=== PATIENT | male | born 1995 ===

== ENCOUNTER 2021-12-29 20:26 | Emergency (ER) | payer SELFPAY ==
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
[2021-12-29] MEDS: SODIUM CHLORIDE 0.9% IRR 500 ML BOTTLE IR ONE (22:10)
[2021-12-29] MEDS: LIDOCAINE 2%/EPINEPHRINE 1:100,000 VIAL (20 ML) INFILTRATI ONE (22:10)
[2021-12-29] MEDS: HYDROGEN PEROXIDE 118 ML SOLUTION TP ONE (22:10)
[2021-12-29] MEDS: LIDOCAINE 1%/EPINEPHRINE 1:100,000 VIAL (20 ML) INFILTRATI ONE (22:47)
[2021-12-29] MEDS: AMOXICILLIN/K CLAV 875/125MG TAB PO ONE (22:51)
[2021-12-30 01:10] VITALS: BP 128/87
== END 2021-12-29 23:00 ==
LOC: ED 20:26
DX: S01.511A Laceration without foreign body of lip, initial encounter (principal); S70.01XA Contusion of right hip, initial encounter; X58.XXXA Exposure to other specified factors, initial encounter; Y93.9 Activity, unspecified; Y92.89 Other specified places as the place of occurrence of the external cause; Y99.8 Other external cause status; S29.012A Strain of muscle and tendon of back wall of thorax, initial encounter
CPT/HCPCS: 12011; 70450; 72072; 72125; 73552; 99284; J3490